=== PATIENT | female | born 1960 | race Caucasian/White ===

== ENCOUNTER 2022-11-19 08:47 | Day surgery (SDC) | payer MEDICAID, SELFPAY ==
[2022-11-14 15:36] VITALS: BMI 31.1
[2022-11-19 09:30] VITALS: BP 134/68; PULSE 75; RESP 18; TEMP 36.4; O2SAT 97
[2022-11-19 09:50] LABS: POC Glucose,Bedside 179 (70-110)
[2022-11-19 10:30] VITALS: BP 123/59; PULSE 66; RESP 18; O2SAT 98
[2022-11-19 10:35] VITALS: BP 124/62; PULSE 66; RESP 16; O2SAT 100
[2022-11-19 10:40] VITALS: BP 124/61; PULSE 65; RESP 16; O2SAT 100
[2022-11-19 10:45] VITALS: BP 125/64; PULSE 66; RESP 16; O2SAT 100
[2022-11-19 11:15] VITALS: BP 106/67; PULSE 73; RESP 18; TEMP 37; O2SAT 95
== END 2022-11-19 11:15 | disposition home or self-care (01) ==
PROVIDERS: PCP Family Medicine; Visit Provider Ophthalmology
PROC: (CPT 66982; principal; 2022-11-19 12:30)
DX: E11.36 Type 2 diabetes mellitus with diabetic cataract (principal); H25.9 Unspecified age-related cataract
CPT/HCPCS: 66982; 82962; V2632

== ENCOUNTER 2022-12-03 08:00 | Day surgery (SDC) | payer MEDICAID, SELFPAY ==
[2022-12-03 09:34] VITALS: BP 152/70; PULSE 69; RESP 16; TEMP 36.4; O2SAT 96
[2022-12-03 09:45] VITALS: BMI 30.5
[2022-12-03 10:15] LABS: POC Glucose,Bedside 128 (70-110)
[2022-12-03 10:25] VITALS: BP 147/68; PULSE 56; RESP 18; O2SAT 100
[2022-12-03 10:30] VITALS: BP 141/65; PULSE 59; RESP 18; O2SAT 97
[2022-12-03 10:35] VITALS: BP 143/65; PULSE 61; RESP 18; O2SAT 100
[2022-12-03 10:40] VITALS: BP 127/60; PULSE 61; RESP 18; O2SAT 100
[2022-12-03 11:05] VITALS: BP 152/68; PULSE 64; RESP 18; TEMP 36.4; O2SAT 95
== END 2022-12-03 11:06 | disposition home or self-care (01) ==
PROVIDERS: PCP Family Medicine; Visit Provider Ophthalmology
PROC: (CPT 66982; principal; 2022-12-03 11:00)
DX: E11.36 Type 2 diabetes mellitus with diabetic cataract (principal); H25.9 Unspecified age-related cataract
CPT/HCPCS: 66982; 82962; V2632